=== PATIENT | male | born 1990 | race American Indian/Alaskan Native ===

== ENCOUNTER 2020-04-02 09:41 | Emergency (ER) | payer BC, OTHER ==
[2020-04-02 09:47] VITALS: BP 139/92
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
== END 2020-04-02 12:59 | disposition left against medical advice (07) ==
LOC: ED 09:41
DX: M54.5 Low back pain (principal); V49.49XA Driver injured in collision with other motor vehicles in traffic accident, initial encounter; Y93.89 Activity, other specified; Y92.410 Unspecified street and highway as the place of occurrence of the external cause; Y99.8 Other external cause status
CPT/HCPCS: 99282

== ENCOUNTER 2021-03-01 21:42 | Emergency (ER) | payer BC, OTHER ==
[2021-03-01 22:21] VITALS: BP 154/94
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
== END 2021-03-02 04:20 | disposition home or self-care (01) ==
LOC: ED 21:42
DX: M54.2 Cervicalgia (principal); M54.5 Low back pain; R07.81 Pleurodynia; F17.200 Nicotine dependence, unspecified, uncomplicated; Z79.899 Other long term (current) drug therapy; V49.49XA Driver injured in collision with other motor vehicles in traffic accident, initial encounter; Y93.89 Activity, other specified; Y92.488 Other paved roadways as the place of occurrence of the external cause; Y99.8 Other external cause status
CPT/HCPCS: 71111; 72040; 72100; 99283